=== PATIENT | male | born 1970 | race Caucasian/White ===

== ENCOUNTER 2016-12-11 12:11 | Emergency (ER) | payer OTHER ==
--- NOTE | ~2016-12-11 | CT4 ---
[facility] A Service of [facility] RADIOLOGY TEXT RESULTS PATIENT: YARELI CISNEROS LOCATION: [facility] : 72 UNIT #: [id number] AGE: [address]: Shayne Ramsey MD SEX: M ORDER DR: [id number] [facility] [address] [place], [place] [address] [id number] MR#: [id number] #: [id number] NAME: YARELI CISNEROS : 1970 SEX: M STUDY DATE/TIME: 12/11/2016 14:17 UNIT: [facility] ROOM: STUDY DESCRIPTION: CT Abd and Pelv Wo Cont Attending Physician: Shayne Ramsey M.D. Ordering Physician: Shayne Ramsey M.D. Primary Care Physician: Danna Michaels A.P.R.N. MEDICAL IMAGING REPORT This report is preliminary unless electronic signature is present EXAM CT abdomen and pelvis, without contrast, 12/11/2016. HISTORY Bilateral flank pain for 3 days. Hematuria also. Prior appendectomy. TECHNIQUE CT abdomen and pelvis performed without administration of oral or intravenous contrast. This CT exam was performed with one or more of the following radiation dose reduction techniques: automatic exposure control, adjustment of mA and/or kV according to patient size, and iterative reconstruction. COMPARISON No comparisons. FINDINGS Lung bases are clear. Inferior heart and pericardium unremarkable. The liver, gallbladder, spleen, pancreas, adrenal glands unremarkable. No intrarenal calculi are seen. No hydronephrosis or hydroureter. There is no clear indication of recent stone passage. No urinary bladder calculus is seen. The bladder wall unremarkable in appearance on noncontrast enhanced imaging. Minimal bilateral and symmetric perinephric inflammatory change probably reflecting chronic change. No perinephric fluid collection. 3.3 cm mid left renal cyst. No inguinal adenopathy. CT PELVIS: There are prostatic calcifications. No pelvic or retroperitoneal adenopathy. Distal esophagus, stomach, small bowel unremarkable. Status post appendectomy by history. Colon remarkable. Unopacified vascular structures appear normal in overall caliber. The bony structures show degenerative changes. No acute-appearing bony abnormality. [facility] A Service of [facility] & [facility] RADIOLOGY TEXT RESULTS PATIENT: YARELI CISNEROS [id number] [birth year] UNIT #: [id number] AGE: [address]: Shayne Ramsey MD SEX: M ORDER DR: IMPRESSION 1. There is no evidence of renal calculi or obstruction. Minimal perinephric stranding bilaterally and symmetrically favored to represent chronic change. No clear indication of acute renal inflammation. Correlate with urinalysis and clinical presentation. Cause for patient's reported hematuria unclear on basis of this examination. Consider further assessment with multiphase contrast-enhanced CT of the kidneys. 2. Mid left renal cyst measuring about 3.3 cm in diameter. 3. Urinary bladder unremarkable on noncontrast enhanced imaging. 4. Gallbladder and pancreas unremarkable. 5. Unopacified alimentary canal shows no acute abnormality. Patient is status post appendectomy by history. 6. Please see remainder of incidental findings in body of report above. Dictated by... Nabil Figueredo M.D. THIS IS AN ELECTRONICALLY VERIFIED REPORT Nabil Figueredo M.D. at 12/12/2016 10:29 AM ELIS/yen TD: 12/11/2016 15:57 JOB #: [id number] MEDICAL IMAGING REPORT Page 1 of 1 COPY
[2016-12-11 12:06] LABS: BASOPHIL# 0.1 X10e3 (0-0.3); BASOPHIL% 0.6 % (0-2.5); EOSINOPHIL# 0.7 X10e3 (0-0.7); HEMATOCRIT 43.3 % (38.0-50.0); HEMOGLOBIN 14.3 gm/dL (13.0-16.0); LYMPHOCYTE# 2.4 X10e3 (1.0-3.5); LYMPHOCYTE% 21.4 % (17.0-45.0); MEAN CELL VOLUME 86.4 FL (83-96); MEAN CORPUSCULAR HEMOGLOBIN 28.5 PG (28-34); MEAN PLATELET VOLUME 8.5 FL (6.5-11.5); MONOCYTE% 8.3 % (3.0-12.0); NEUTROPHIL# 7.3 X10e3 (1.5-7.1); NEUTROPHIL% 63.7 % (40-75); PLATELET COUNT 154 X10e3 (140-420); RED BLOOD COUNT 5.02 X10e (3.90-5.60); WHITE BLOOD COUNT 11.4 X10e3 (4.0-10.5)
[2016-12-11 12:08] LABS: DIFF IND NO
[~2016-12-11 12:11] MED LIST: ASPIRIN81 M2 PO; LISINOPRIL10 MG PO; METFORMIN HCL500 M1 PO; PEPCID PO
[2016-12-11 12:17] LABS: INR 2.4; PROTHROMBIN TIME (PATIENT) 26.1 SECONDS (9.6-11.5)
[2016-12-11 12:30] LABS: URINE SOURCE CLEAN CATCH
[2016-12-11 12:33] LABS: BUN/CREATININE RATIO 31.11; CALCIUM SERUM 9.4 mg/dL (8.4-10.2); CREATININE SERUM 0.9 mg/dL (0.6-1.4); GLOM FILT RATE Estimated 102.8 mL/min (>60); POTASSIUM 3.9 mmol/L (3.5-5.1)
[2016-12-11 12:41] LABS: URINE APPEARANCE CLOUDY; URINE BILIRUBIN NEG (NEG); URINE BLOOD 3+ (NEG); URINE COLOR RED; URINE GLUCOSE NEG (NEG); URINE KETONE NEG (NEG); URINE LEUKOCYTE ESTERASE 1+ (NEG); URINE NITRATE NEG (NEG); URINE PH 5.5 (5-8); URINE PROTEIN 1+ (NEG); URINE SPECIFIC GRAVITY 1.017 (1.003-1.035); URINE UROBILINOGEN 0.2 MG/DL (NEG)
[2016-12-11 12:44] LABS: CULTURE INDICATED? YES; U HYALINE CASTS AUWI 0-2 /[LPF]; URBCS1 AUWI INNUM /[HPF] (0-2); URINE BACTERIA AUWI NEG (NEGATIVE); URINE SQUAMOUS EPITHELIAL CELL NONE SEEN /[HPF]
== END 2016-12-11 16:03 | disposition home or self-care (01) ==
LOC: CED 12:11
PROVIDERS: Emergency Medicine
DX: R31.9 Hematuria, unspecified (principal); E11.9 Type 2 diabetes mellitus without complications; I10 Essential (primary) hypertension; G40.909 Epilepsy, unspecified, not intractable, without status epilepticus; Z90.49 Acquired absence of other specified parts of digestive tract; Z79.01 Long term (current) use of anticoagulants
CPT/HCPCS: 36415; 74176; 80048; 81003; 85025; 85610; 87086; 99284

== ENCOUNTER 2016-12-15 09:59 | Emergency (ER) | payer OTHER ==
--- NOTE | ~2016-12-15 | CT4 ---
[facility] A Service of [facility] RADIOLOGY TEXT RESULTS PATIENT: YARELI CISNEROS LOCATION: [facility] : 72 UNIT #: [id number] AGE: [address]: Andres Patel MD SEX: M ORDER DR: [id number] [facility] [address] [place], [place] [address] [id number] E MR#: [id number] #: [id number] NAME: YARELI CISNEROS : 1970 SEX: M STUDY DATE/TIME: 12/15/2016 9:28 UNIT: [facility] ROOM: STUDY DESCRIPTION: CT Abd and Pelv Wo Cont Attending Physician: Andres Patel M.D. Ordering Physician: Andres Patel M.D. Primary Care Physician: Danna Michaels A.P.R.N. MEDICAL IMAGING REPORT This report is preliminary unless electronic signature is present EXAM CT abdomen and pelvis without contrast INDICATIONS Right and left back and flank pain with difficulty urinating for the past [address] of the abdomen and pelvis. COMPARISON 12/11/[address] exam was performed with one or more of the following radiation dose reduction techniques: automatic exposure control, adjustment of mA and/or kV according to patient size, and iterative reconstruction. FINDINGS Abdomen without contrast: Included lung bases are clear. The liver, spleen, adrenal glands, pancreas, gallbladder unremarkable. Bowel loops are nondilated. Moderate colonic stool burden. No radiodense urinary system calculus or hydronephrosis. There is a 2.9 cm cyst in the left kidney. Pelvis without contrast: No radiodense bladder calculus. No pelvic mass or fluid. No aggressive appearing bone lesion. IMPRESSION 1. No acute findings. No radiodense urinary system calculus or hydronephrosis. 2. Moderate colonic stool burden. [facility] A Service of [facility] RADIOLOGY TEXT RESULTS PATIENT: YARELI CISNEROS LOCATION: [facility] : 72 UNIT #: [id number] AGE: [address]: Andres Patel MD SEX: M ORDER DR: Dictated by... Bebo Kimball M.D. THIS IS AN ELECTRONICALLY VERIFIED REPORT Bebo Kimball M.D. at 12/18/2016 7:42 AM Nando TD: 12/15/2016 11:52 JOB #: [id number] MEDICAL IMAGING REPORT Page 1 of 1 COPY
[2016-12-15 09:12] LABS: BASOPHIL# 0.1 X10e3 (0-0.3); BASOPHIL% 0.9 % (0-2.5); EOSINOPHIL# 0.7 X10e3 (0-0.7); EOSINOPHIL% 8.1 % (0.0-7.0); HEMATOCRIT 43.4 % (38.0-50.0); HEMOGLOBIN 14.5 gm/dL (13.0-16.0); LYMPHOCYTE# 2.2 X10e3 (1.0-3.5); LYMPHOCYTE% 24.4 % (17.0-45.0); MEAN CELL VOLUME 85.9 FL (83-96); MEAN CORPUSCULAR HEMOGLOBIN 28.6 PG (28-34); MEAN CORPUSCULAR HGB CONC 33.3 g/dL (30-36); MEAN PLATELET VOLUME 8.8 FL (6.5-11.5); MONOCYTE# 0.7 X10e3 (0-1.0); NEUTROPHIL# 5.3 X10e3 (1.5-7.1); NEUTROPHIL% 58.6 % (40-75); PLATELET COUNT 154 X10e3 (140-420); RED BLOOD COUNT 5.06 X10e (3.90-5.60); RED CELL DISTRIBUTION WIDTH 13.8 % (11.0-15.5); WHITE BLOOD COUNT 9.1 X10e3 (4.0-10.5)
[2016-12-15 09:13] LABS: DIFF IND NO
[2016-12-15 09:26] LABS: INR 2.3; PROTHROMBIN TIME (PATIENT) 24.7 SECONDS (9.6-11.5)
[2016-12-15 09:47] LABS: ALBUMIN SERUM 4.2 g/dL (3.5-5.0); BILIRUBIN, DIRECT 0.1 mg/dL (0.0-0.2); BILIRUBIN,INDIRECT 0.7 mg/dL (0.0-0.9); BILIRUBIN,TOTAL 0.8 mg/dL (0.2-2.0); BUN/CREATININE RATIO 21.25; CALCIUM SERUM 9.1 mg/dL (8.4-10.2); CREATININE SERUM 0.8 mg/dL (0.6-1.4); GLOM FILT RATE Estimated 107.9 mL/min (>60); POTASSIUM 3.9 mmol/L (3.5-5.1)
[2016-12-15 10:17] LABS: URINE SOURCE CLEAN CATCH
[2016-12-15 10:31] LABS: URINE APPEARANCE TURBID; URINE BILIRUBIN NEG (NEG); URINE BLOOD 2+ (NEG); URINE COLOR ORANGE; URINE GLUCOSE NEG (NEG); URINE KETONE NEG (NEG); URINE LEUKOCYTE ESTERASE 1+ (NEG); URINE NITRATE NEG (NEG); URINE PH 5.5 (5-8); URINE PROTEIN 1+ (NEG); URINE SPECIFIC GRAVITY 1.026 (1.003-1.035)
[2016-12-15 10:32] LABS: CULTURE INDICATED? YES; URBCS1 AUWI INNUM /[HPF] (0-2); URINE BACTERIA AUWI NEG (NEGATIVE); URINE SQUAMOUS EPITHELIAL CELL NONE SEEN /[HPF]
== END 2016-12-15 11:13 | disposition home or self-care (01) ==
LOC: CED 09:59
PROVIDERS: Emergency Medicine
DX: K59.00 Constipation, unspecified (principal); R31.9 Hematuria, unspecified; I10 Essential (primary) hypertension; E11.9 Type 2 diabetes mellitus without complications
CPT/HCPCS: 36415; 74176; 80048; 80076; 81003; 83690; 85025; 85610; 85730; 87086; 96361; 96374; 99284; J1885